=== PATIENT | male | born 1990 | race African-American/Black ===

== ENCOUNTER 2020-01-25 15:03 | Emergency (ER) | payer MEDICAID ==
[~2020-01-25] VITALS: Ht 182.9 cm; Wt 81.6 kg
--- NOTE | 2020-01-25 15:16 | NUR ---
ED Nurse Note: PT walked in to ed for C/O a lump to right testicle area for 1 day. pt reports area being tender to touch.
[2020-01-25 15:18] VITALS: BP 110/70
--- NOTE | 2020-01-25 16:00 | NUR ---
ED Nurse Note: urine sample collected and sent to lab.
[2020-01-25 16:26] LABS: APPEARANCE,URINE CLOUDY; BILIRUBIN, URINE NEGATIVE (NEGATIVE); GLUCOSE, URINE (UA) NEGATIVE (NEGATIVE); KETONES,URINE NEGATIVE (NEGATIVE); LEUKOCYTE ESTERASE ,URINE 1+ (NEGATIVE); NITRITE,URINE NEGATIVE (NEGATIVE); PH,URINE 7 (4.5-8.0); PROTEIN,URINE NEGATIVE (NEGATIVE); UROBILINOGEN,URINE 4 MG/DL (0.0-1.0)
[2020-01-25 16:30] LABS: COLOR,URINE YELLOW
--- NOTE | 2020-01-25 17:05 | Diagnostic Imaging Report ---
Indications: Right testicular pain Technique: Grayscale and duplex images of the scrotum Comparison: Findings:The right testicle measures forcm in length. It demonstrates normal echogenicity. Normal Doppler flow. Normal epididymis. The left testicle measures 3.8 cm in length. It demonstrates normal echogenicity and normal Doppler flow. Normal epididymis. Impression: Negative
[2020-01-25] MEDS ORDERED: CEPHALEXIN500 MG ORAL (17:53)
--- NOTE | 2020-01-25 17:53 | Emergency Room Report ---
History of Present Illness General Chief Complaint: Skin Rash/Abscess Source: Patient Present Illness HPI 29-year-old male with no significant past medical history here complaining of 2 days pressure inside right testicle. Denies any penile discharge, scrotal pain or swelling. Denies any trauma to the area. Reports that he is sexually active defers treatment for STD. Denies fever and chills, diffuse abdominal pain, nausea or vomiting. For symptom relief. 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 Patient History Past Medical History: see triage record Past Surgical History: none Pertinent Family History: none Immunizations: UTD Reviewed Nursing Documentation: PMH: Agreed; PSxH: Agreed Nursing Documentation-PMH Past Medical History: No History, Except For Review of Systems All Other Systems: negative except mentioned in HPI Physical Exam Vital Signs Date Time Temp Pulse Resp B/P (MAP) Pulse Ox O2 Delivery O2 Flow Rate FiO2 01/25/20 15:09 98.1 91 14 107/68 (81) 99 Room Air Sp02 EP Interpretation: reviewed, normal General Appearance: no apparent distress, alert, GCS 15, non-toxic Head: normocephalic, atraumatic Eyes: bilateral eye normal inspection, bilateral eye PERRL ENT: hearing grossly normal, normal pharynx, no angioedema, normal voice Neck: full range of motion, supple/symm/no masses Respiratory: chest non-tender, lungs clear, normal breath sounds, speaking full sentences Cardiovascular #1: regular rate, rhythm, no edema Gastrointestinal: normal bowel sounds, non tender, soft, non-distended, no guarding, no rebound Rectal: deferred Genitourinary: no CVA tenderness, penis normal, scrotum normal Musculoskeletal: back normal, normal range of motion, pelvis stable, gait/station normal, non-tender Neurologic: alert, motor strength/tone normal, oriented x3, sensory intact, responsive, speech normal Psychiatric: judgement/insight normal, memory normal, mood/affect normal, no suicidal/homicidal ideation Skin: no rash Lymphatic: no adenopathy Medical Decision Making PA Attestation All my diagnosis and treatment plans were reviewed ad discussed with my supervising physician Dr. Sanchez Diagnostic Impression: Primary Impression: Scrotal pain Additional Impression: UTI (urinary tract infection) ER Course 29-year-old male with no significant past medical history here complaining of 2 days pressure inside right testicle. Denies any penile discharge, scrotal pain or swelling. Denies any trauma to the area. Reports that he is sexually active defers treatment for STD. Denies fever and chills, diffuse abdominal pain, nausea or vomiting. For symptom relief. Patient sexual partner is also here being seen for UTI symptoms Ddx considered but are not limited to: UTI, chlamydia, gonorrhea, scrotal swelling, scrotal pain, testicular torsion, testicular mass, hydrocele, testicular cancer, varicocele, epididymitis Vital signs: are WNL, pt. is afebrile H&PE are most consistent with: Testicular pain, UTI ORDERS: UA, urine cx, scrotal ultrasound, Keflex ED INTERVENTIONS: None required at this time. DISCHARGE: At this time pt. is stable for d/c to home. Will provide printed patient care instructions, and any necessary prescriptions. Care plan and follow up instructions have been discussed with the patient prior to discharge. Advised patient to follow-up with primary doctor for referral to urologist, take medication as directed, get tested for sexually transmitted diseases, if worsening symptoms return to the emergency room CT/MRI/US Diagnostic Results CT/MRI/US Diagnostic Results : Imaging Test Ordered: Scrotal ultrasound Impression Comparison: Findings:The right testicle measures forcm in length. It demonstrates normal echogenicity. Normal Doppler flow. Normal epididymis. The left testicle measures 3.8 cm in length. It demonstrates normal echogenicity and normal Doppler flow. Normal epididymis. Impression: Negative Last Vital Signs Date Time Temp Pulse Resp B/P (MAP) Pulse Ox O2 Delivery O2 Flow Rate FiO2 01/25/20 15:18 98.3 88 16 110/70 98 Room Air Disposition: HOME, SELF-CARE Condition: Stable Scripts Cephalexin* (KEFLEX*) 500 Mg Capsule 500 MG ORAL EVERY 12 HOURS for 7 Days, #14 CAP 0 Refills Prov: Diana Goldman 01/25/20 Referrals: [facility] (PCP) Patient Instructions: Scrotal Swelling, Urinary Tract Infection, [id number] Additional Instructions: Take medication as directed, follow-up with urologist, if worsening symptoms return to the emergency room Diana Goldman Jan 25, 2020 17:53
[2020-01-25 17:56] VITALS: BP 132/84
--- NOTE | 2020-01-25 17:56 | NUR ---
ER DISCHARGE NOTE: Patient is cleared to be discharged per ERMD, pt is aox4, on room air, with stable vital signs. pt was given dc and prescription instructions, pt was able to verbalize understanding, pt id band removed without complications. pt is able to ambulate with steady gait. pt took all belongings.
== END 2020-01-25 17:56 | disposition home or self-care (01) ==
LOC: EMR 15:52
DX: N50.82 Scrotal pain (principal); N39.0 Urinary tract infection, site not specified
CPT/HCPCS: 76870; 81003; Z7502; 99283

== ENCOUNTER 2020-02-27 12:44 | Emergency (ER) | payer MEDICAID ==
[~2020-02-27] VITALS: Ht 182.9 cm; Wt 79.4 kg
[~2020-02-27 12:44] MED LIST: CEPHALEXIN500 MG ORAL
[2020-02-27 13:46] LABS: APPEARANCE,URINE CLEAR; BILIRUBIN, URINE NEGATIVE (NEGATIVE); GLUCOSE, URINE (UA) NEGATIVE (NEGATIVE); KETONES,URINE 1+ (NEGATIVE); LEUKOCYTE ESTERASE ,URINE 1+ (NEGATIVE); NITRITE,URINE NEGATIVE (NEGATIVE); PH,URINE 6 (4.5-8.0); PROTEIN,URINE NEGATIVE (NEGATIVE); UROBILINOGEN,URINE NORMAL MG/DL (0.0-1.0)
[2020-02-27 13:48] LABS: COLOR,URINE YELLOW
[2020-02-27 13:55] VITALS: BP 132/88
--- NOTE | 2020-02-27 13:56 | NUR ---
ED Nurse Note:pt. came with med refill and testicular pain
--- NOTE | 2020-02-27 13:58 | Emergency Room Report ---
History of Present Illness General Chief Complaint: Medication Refill Source: Patient Present Illness HPI 29-year-old male with history of recurrences of urinary tract infection here complaining urinary urgency as well as pressure in penile area. Patient reports that he was just here a month ago and was diagnosed with UTI, ultrasound of the scrotum was within normal limits. Patient has not followed up with primary care provider reporting that he does not have established primary care. Denies fever and chills, hematuria, testicular pain and swelling. Denies being sexually active, denies penile discharge. Has not taken medication for symptom relief. Patient is requesting refill on Keflex reports that it worked for him last time but he took it. However he took it less than a month ago. 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 COVID-19 Screening: Negative COVID-19 COVID-19 Testing Source: 08/2019 Patient History Past Medical History: see triage record Past Surgical History: none Pertinent Family History: none Immunizations: UTD Reviewed Nursing Documentation: PMH: Agreed; PSxH: Agreed Nursing Documentation-PMH Past Medical History: No History, Except For Review of Systems All Other Systems: negative except mentioned in HPI Physical Exam Vital Signs Date Time Temp Pulse Resp B/P (MAP) Pulse Ox O2 Delivery O2 Flow Rate FiO2 02/27/20 12:50 98.2 70 15 132/88 (103) 96 Room Air Sp02 EP Interpretation: reviewed, normal General Appearance: no apparent distress, alert, GCS 15, non-toxic Head: normocephalic, atraumatic Eyes: bilateral eye normal inspection, bilateral eye PERRL ENT: hearing grossly normal, normal pharynx, no angioedema, normal voice Neck: full range of motion, supple/symm/no masses Respiratory: chest non-tender, lungs clear, normal breath sounds, speaking full sentences Cardiovascular #1: regular rate, rhythm, no edema Gastrointestinal: normal bowel sounds, non tender, soft, non-distended, no guarding, no rebound Genitourinary: no CVA tenderness Musculoskeletal: back normal Neurologic: alert, motor strength/tone normal, oriented x3, sensory intact, responsive, speech normal Psychiatric: judgement/insight normal, memory normal, mood/affect normal, no suicidal/homicidal ideation Skin: no rash Lymphatic: no adenopathy Medical Decision Making PA Attestation All diagnoses and treatment plans were reviewed and discussed with my supervising physician Dr. Gong Diagnostic Impression: Primary Impression: UTI (urinary tract infection) ER Course 29-year-old male with history of recurrences of urinary tract infection here complaining urinary urgency as well as pressure in penile area. Patient reports that he was just here a month ago and was diagnosed with UTI, ultrasound of the scrotum was within normal limits. Patient has not followed up with primary care provider reporting that he does not have established primary care. Denies fever and chills, hematuria, testicular pain and swelling. Denies being sexually active, denies penile discharge. Has not taken medication for symptom relief. Patient is requesting refill on Keflex reports that it worked for him last time but he took it. However he took it less than a month ago. Ddx considered but are not limited to: UTI, pyelonephritis, urinary incontinence, prolapsed bladder Vital signs: are WNL, pt. is afebrile H&PE are most consistent with: UTI ORDERS: UA, urine cx, Bactrim DS ED INTERVENTIONS: None required at this time. DISCHARGE: At this time pt. is stable for d/c to home. Will provide printed patient care instructions, and any necessary prescriptions. Care plan and follow up instructions have been discussed with the patient prior to discharge. Advised patient to follow primary care provider for referral to urologist, if worsening symptoms return to the emergency room. Patient defers treatment for sexually transmitted diseases. Last Vital Signs Date Time Temp Pulse Resp B/P (MAP) Pulse Ox O2 Delivery O2 Flow Rate FiO2 02/27/20 12:50 98.2 70 15 132/88 (103) 96 Room Air Disposition: HOME, SELF-CARE Condition: Stable Scripts Trimethoprim/Sulfamethoxazole 160/800* (BACTRIM DS TABLET*) 1 Each Tablet 1 TAB ORAL TWICE A DAY for 7 Days, #14 TAB Prov: Diana Goldman 02/27/20 Referrals: NON PHYSICIAN (PCP) Patient Instructions: Urinary Tract Infection, [id number] Additional Instructions: Take medication as directed, follow primary care provider for referral to urologist, I have listed some family clinics he can follow-up with if you do not already have a primary care provider, if worsening symptoms return to the emergency room Diana Goldman Feb 27, 2020 13:58
[2020-02-27] MEDS ORDERED: BACTRIM DS TAB1 EAC1 ORAL (13:59)
[2020-02-27 14:00] VITALS: BP 132/88
--- NOTE | 2020-02-27 14:00 | NUR ---
ED Nurse Note: Pt cleared by health care Provider for discharge. DC instructions/prescription was given and explained to pt and verbalized understanding of teachings. All medical deviecs such as ID band removed. Pt is AAO x4, ambulatory and left with all personal belongings.
== END 2020-02-27 14:00 | disposition home or self-care (01) ==
LOC: EMR 13:14
DX: N39.0 Urinary tract infection, site not specified (principal)
CPT/HCPCS: 81003; Z7502; 99282